=== PATIENT | female | born 2000 | race Caucasian/White ===

== ENCOUNTER → 2020-02-04 | Day surgery (SDC) | payer BC ==
[~2020-02-04] MED LIST: METFORMIN HCL500 M2 PO; MIDAZOLAM HCL 2 MG/2 ML VIAL ONE; PANTOPRAZOLE 40 MG 10ML VIAL ONE; PROPOFOL IV EMULSION 10 MG/ML 50 ML VIAL ONE; SODIUM CHLORIDE 0.9% INJ 10 ML VIAL ONE
--- OUTSIDE RECORDS SUMMARY | 2020-02-04 05:51 | XMS REPORT | Summary of Care ---
Author Author NERY SANTORO M.D. Organization Unknown Address Unknown Phone Unavailable Care Team Providers Care Secy Name Role Phone NERY SANTORO M.D. Unavailable Unavailable KELSEY GARCIA [place], BRANDO DICKENS Unavailable Unavailable ROWAN CRAFT NC, CHUCK Unavailable Unavailable KELSEY Liang, BRANDO Unavailable Unavailable MARYAN GARCIA NC, REX HENDRICKS Unavailable Unavailable NERY SANTORO MD Unavailable Unavailable Unavailable Unavailable Functional Status Name Dates Details Functional status health issues are not documented Status: Name Dates Details Cognitive status health issues are not documented Status: Problems Name Dates Details Suicidal thoughts (V62.84, R45.851) Status: Active Thoracic back pain (724.1, M54.6) Status: Active Seasonal allergic rhinitis (477.9, J30.2) Status: Active PCOS (polycystic ovarian syndrome) (256.4, E28.2) Status: Active Insomnia (780.52, G47.00) Status: Active Weight increase (783.1, R63.5) Status: Active Need for influenza vaccination (V04.81, Z23) Status: Active Anxiety with depression (300.4, F41.8) Status: Active Medications Name Dates Details metFORMIN HCl ER (OSM) 500 MG Oral Tablet Extended Release 24 Hour TAKE 2 TABLETS DAILY. Quantity: 180 NERY SANTORO M.D. Active Allergies and Adverse Reactions Name Dates Details No Known Drug Allergies (Allergy) Status: Active Past Medical History Name Dates Details History of Closed displaced fracture of neck of fifth metacarpal bone of right hand, initial encounter (815.04, S62.336A) Status: Resolved History of Closed displaced fracture of shaft of fourth metacarpal bone of right hand, initial encounter (815.03, S62.324A) Status: Resolved Procedures Procedure Dates Details Procedures not documented Immunization Name Dates Details Gardasil 9 Intramuscular Suspension Prefilled Syringe Not Administered Gardasil 9 Intramuscular Suspension on: Oct-2012 Tdap on: Oct-2013 Fluzone Quadrivalent 0.5 ML Intramuscular Suspension Prefilled Syringe #1 Lot #: [id number] on: 20-Dec-2019 Family History Name Dates Details Family history of malignant neoplasm of prostate (V16.42, Z80.42) Status: Active Name Dates Details FH: breast cancer in first degree relative (V16.3, Z80.3) Status: Active Name Dates Details Family history of Hypothyroidism Status: Active Family history of Rheumatoid Arthritis Status: Active Name Dates Details Family history of Diabetes Mellitus (V18.0) Status: Active Family history of Thyroid Carcinoma Status: Active Family history of Colon Cancer (V16.0) Status: Active Family history of essential hypertension (V17.49, Z82.49) Status: Active Social History Name Dates Details - Status: Name Dates Details Smokes tobacco daily (finding) Vital Signs Date Test Result Details [id number]:00 Physical Findings 10 Status: Comments: PHQ-9 Adult Depression Screening 17-Glr-809832:45 Systolic blood pressure 107 mm[Hg] Status: Comments: Location: LUE; Position: Sitting Diastolic blood pressure 72 mm[Hg] Status: Comments: Location: LUE; Position: Sitting Body height 62 in Status: Physical Findings 19 Status: Comments: 2-20 Stature Percentile Weight 177.4 lb Status: Body mass index (BMI) [Ratio] 32.45 kg/m2 Status: Body surface area Derived from formula 1.82 m2 Status: Physical Findings 94 Status: Comments: 2-20 Weight Percentile Physical Findings 96 Status: Comments: BMI Percentile Body temperature 97.6 f Status: Comments: Method: Temporal Heart Rate 90 /min Status: Respiratory rate 18 /min Status: Physical Findings 0 Status: Comments: Alcohol Screen - How many times in the past yr have you had 5 (for M) or 4 (for F) or 4 (for all > 65yrs) or more drinks in a day? Results Date Description Value Details [id number] [[facility]] CMP W/EGFR GLUCOSE 83 mg/dl (Normal) Range: 65-139 Comments: Non-fasting reference interval UREA NITROGEN (BUN) 16 mg/dl (Normal) Range: 7-20 CREATININE 0.85 mg/dl (Normal) Range: 0.50-1.00 eGFR NON- 99 {ML/MIN/1.7} (Normal) Range: > OR=60 eGFR 115 {ML/MIN/1.7} (Normal) Range: > OR=60 BUN/CREATININE RATIO NOT APPLICABLE {CALC} Range: 6-22 SODIUM 138 mmol/L (Normal) Range: 135-146 POTASSIUM 4.1 mmol/L (Normal) Range: 3.8-5.1 CHLORIDE 105 mmol/L (Normal) Range: 98-110 CARBON DIOXIDE 27 mmol/L (Normal) Range: 20-32 CALCIUM 9.4 mg/dl (Normal) Range: 8.9-10.4 PROTEIN, TOTAL 7.1 g/dl (Normal) Range: 6.3-8.2 ALBUMIN 4.2 g/dl (Normal) Range: 3.6-5.1 GLOBULIN 2.9 {G/DL__CALC} (Normal) Range: 2.0-3.8 ALBUMIN/GLOBULIN RATIO 1.4 {CALC} (Normal) Range: 1.0-2.5 BILIRUBIN, TOTAL 0.2 mg/dl (Normal) Range: 0.2-1.1 ALKALINE PHSPHATASE 94 u/l (Normal) Range: 36-128 AST 19 u/l (Normal) Range: 12-32 ALT 17 u/l (Normal) Range: 5-32 [id number]-[id number] [[facility]] CBC (INCLUDES DIFF/PLT) WHITE BLOOD CELL COUNT 7.9 {Thousand/u} (Normal) Range: 3.8-10.8 RED BLOOD CELL COUNT 3.80 {Million/uL} (Normal) Range: 3.80-5.10 HEMAGLOBIN 12.0 g/dl (Normal) Range: 11.7-15.5 HEMATOCRIT 35.9 % (Normal) Range: 35.0-45.0 MCV 94.5 fL (Normal) Range: 80.0-100.0 MCH 31.6 pg (Normal) Range: 27.0-33.0 MCHC 33.4 g/dl (Normal) Range: 32.0-36.0 RDW 12.5 % (Normal) Range: 11.0-15.0 PLATELET COUNT 300 {Thousand/u} (Normal) Range: 140-400 MPV 10.7 fL (Normal) Range: 7.5-12.5 ABSOLUTE NEUTROPHILS 4385 {cells/uL} (Normal) Range: 7339-8791 ABSOLUTE LYMPHOCYTES 1951 {cells/uL} (Normal) Range: 850-3900 ABSOLUTE MONOCYTES 909 {cells/uL} (Normal) Range: 200-950 ABSOLUTE EOSINOPHILS 616 {cells/uL} (Above high threshold) Range: 15-500 ABSOLUTE BASOPHILS 40 {cells/uL} (Normal) Range: 0-200 NEUTROPHILS 55.5 % (Normal) LYMPHOCYTES 24.7 % (Normal) MONOCYTES 11.5 % (Normal) EOSINOPHILS 7.8 % (Normal) BASOPHILS 0.5 % (Normal) : [[facility]] T3, TOTAL T3, TOTAL 127 ng/dl (Normal) Range: 86-192 : [[facility]] T4, FREE T4, FREE 1.1 ng/dl (Normal) Range: 0.8-1.4 [[facility]] TSH, 3RD GENERATION TSH 1.02 {MIU/L} (Normal) Comments: Reference Range 1-19 Years 0.50-4.30 Ranges First trimester 0.26-2.66 Second trimester 0.55-2.73 Third trimester 0.43-2.91 : [[facility]] HEMOGLOBIN A1c Comments: REPORT COMMENT:FASTING:NO HEMOGLOBIN A1c 5.4 {%_of_total} (Normal) Range: <5.7 Comments: For the purpose of screening for the presence ofdiabetes: <5.7% Consistent with the absence of diabetes5.7-6.4% Consistent with increased risk for diabetes (prediabetes)> or=6.5% Consistent with diabetes This assay result is consistent with a decreased riskof diabetes. Currently, no consensus exists regarding use ofhemoglobin A1c for diagnosis of diabetes in children. According to [place] Diabetes Association (ADA)guidelines, hemoglobin A1c <7.0% represents optimalcontrol in non- diabetic patients. Differentmetrics may apply to specific patient populations. Standards of Medical Care in Diabetes(ADA). Plan of Care Name Dates Details Planned Observations Planned Goals not documented Planned Encounters Appointment; NERY SANTORO M.D. On: 17-Jan-2020 16:00 Interventions Provided Discussion/Summary* Gluocse is well controlled. Normal thyroid function. Normal CBC. No electrolyte abnormalities to suggest adrenal problems. Continue plan to consult with a and p mechanic. Increase frequeny and intensity of exercise. Use the [employer] gabriela to keep a calorie diary. Continue Metformin ER 1000 mg bid. Instructions Name Dates Details Instructions not documented Encounters Appointment; REX STEINBERG M.D. Encounter Diagnosis: Problem not documented On: 19-Mar-2019 13:30 Appointment; CHUCK DONAUHE D.O. Encounter Diagnosis: Problem not documented On: 20-Mar-2019 12:30 Appointment; MARIA L EASLEY M.D. Encounter Diagnosis: Problem not documented On: 22-Mar-2019 10:30 Appointment; REX STEINBERG M.D. Encounter Diagnosis: Problem not documented On: 18-Apr-2019 14:15 Appointment; REX STEINBERG M.D. Encounter Diagnosis: Problem not documented On: 22-Apr-2019 15:00 Appointment; CHUCK DONAHUE D.O. Encounter Diagnosis: Problem not documented On: 01-May-2019 7:30 Appointment; NERY SANTORO M.D. Encounter Diagnosis: Problem not documented On: 23-Aug-2019 16:00 Appointment; NERY SANTORO M.D. Encounter Diagnosis: Problem not documented On: 20-Dec-2019 15:15
--- OUTSIDE RECORDS SUMMARY | 2020-02-04 05:51 | XMS REPORT | Summary of Care ---
Author Author NERY SANOTRO M.D. Organization Unknown Address Unknown Phone Unavailable Care Team Providers Care Education Department Registrar Name Role Phone NERY SANTORO M.D. Unavailable Unavailable KELSEY GARCIA NM, BRANDO DICKENS Unavailable Unavailable ROWAN CRAFT NM, CHUCK Unavailable Unavailable KELSEY Liang, BRANDO Unavailable Unavailable MARYAN GARCIA NM, REX HENDRICKS Unavailable Unavailable NERY SANTORO MD Unavailable Unavailable Unavailable Unavailable Functional Status Name Dates Details Functional status health issues are not documented Status: Name Dates Details Cognitive status health issues are not documented Status: Problems Name Dates Details Suicidal thoughts (V62.84, R45.851) Status: Active Thoracic back pain (724.1, M54.6) Status: Active Seasonal allergic rhinitis (477.9, J30.2) Status: Active Insomnia (780.52, G47.00) Status: Active Weight increase (783.1, R63.5) Status: Active Need for influenza vaccination (V04.81, Z23) Status: Active Anxiety with depression (300.4, F41.8) Status: Active PCOS (polycystic ovarian syndrome) (256.4, E28.2) Status: Active Medications Name Dates Details metFORMIN [...] Intramuscular Suspension Prefilled Syringe #1 Lot #: [id number] on: 20-Dec-2019 Family History Name Dates Details [...] (finding) Vital Signs Date Test Result Details [id number]:00 Physical Findings 10 Status: Comments: PHQ-9 Adult Depression Screening 75-Wqx-551230:45 Systolic blood pressure 107 mm[Hg] Status: Comments: [...] a day? Results Date Description Value Details 28-Bun-796538:29 [[facility]] CMP W/EGFR GLUCOSE 83 mg/dl (Normal) [...] 12-32 ALT 17 u/l (Normal) Range: 5-32 84-Ufh-194701:29 [[facility]] CBC (INCLUDES DIFF/PLT) WHITE BLOOD CELL COUNT [...] 7.5-12.5 ABSOLUTE NEUTROPHILS 4385 {cells/uL} (Normal) Range: 4156-7068 ABSOLUTE LYMPHOCYTES 1951 {cells/uL} (Normal) Range: 850-3900 ABSOLUTE MONOCYTES 909 {cells/uL} (Normal) Range: 200-950 ABSOLUTE EOSINOPHILS 616 {cells/uL} (Above high threshold) Range: 15-500 ABSOLUTE BASOPHILS 40 {cells/uL} (Normal) Range: 0-200 NEUTROPHILS 55.5 % (Normal) LYMPHOCYTES 24.7 % (Normal) MONOCYTES 11.5 % (Normal) EOSINOPHILS 7.8 % (Normal) BASOPHILS 0.5 % (Normal) : [[facility]] T3, TOTAL T3, TOTAL 127 ng/dl (Normal) Range: 86-192 : [[facility]] T4, FREE T4, FREE 1.1 ng/dl (Normal) Range: 0.8-1.4 [[facility]] TSH, 3RD GENERATION TSH 1.02 {MIU/L} (Normal) Comments: Reference Range 1-19 Years 0.50-4.30 Ranges First trimester 0.26-2.66 Second trimester 0.55-2.73 Third trimester 0.43-2.91 : [[facility]] HEMOGLOBIN A1c Comments: REPORT COMMENT:FASTING:NO HEMOGLOBIN A1c [...] diagnosis of diabetes in children. According to [place] Diabetes [employer] (ADA)guidelines, hemoglobin A1c <7.0% represents optimalcontrol in non- diabetic patients. Differentmetrics may apply to specific patient populations. Standards of Medical Care in Diabetes(ADA). Plan of Care Name Dates Details Planned Observations Planned Goals not documented Planned Encounters Dietitian Referral Appointment; NERY SANTORO M.D. On: 17-Jan-2020 16:00 Interventions Provided Medication Changes* metFORMIN HCl ER (OSM) 500 MG Oral Tablet Extended Release 24 Hour - Renew Medications/Immunizations Administered* Fluzone Quadrivalent 0.5 ML Intramuscular Suspension Prefilled Syringe; Done: 20 Dec 2019 Plan* Anxiety with depression (300.4) (F41.8) * Obtain thyroid panel, * A1C, CMP, CBC. * DIscussed natural history of PCOS, insulin resistance. * Explained the role of metformin in reducing insulin resistance, insulin levels, and possibly helping reduce/reverse some weight gain. * Increase Metformin ER to 1000 mg bid. * Referral to DM educator/legal billing coordinator. * Discussed changing lifestyle to prevent chronic disease from obesity. * Discussed nutritional resources available in the community. Encouraged ongoing participation in the [employer] Class, 3rd Monday of each month. * Reinforced elimination of non-nutritious calories. * Discussed goal of 30 minutes of cardiovascular exercise 5x/week. * Schedule a visit to follow up in 1 month. Instructions Name Dates Details Instructions not documented Encounters Appointment; REX STEINBERG M.D. Encounter Diagnosis: Problem not documented On: 19-Mar-2019 13:30 Appointment; CHUCK DONAHUE D.O. Encounter Diagnosis: Problem [...]
--- OUTSIDE RECORDS SUMMARY | 2020-02-04 05:51 | XMS REPORT | Summary of Care ---
Author Author Jayne Blanchard M.A. Unknown Address [facility] Phone Unavailable Care Team Providers Care Binder Selector Name Role Phone MAUDE Liang, NERY Unavailable Unavailable KELSEY GARCIA ID, BRANDO DICKENS Unavailable Unavailable ROWAN CRAFT [place], CHUCK Unavailable Unavailable KELSEY Liang, BRANDO Unavailable Unavailable MARYAN GARCIA ID, REX HENDRICKS Unavailable Unavailable NERY SANTORO MD [...] Intramuscular Suspension Prefilled Syringe #1 Lot #: [id number] on: 20-Dec-2019 Family History Name Dates Details [...] (finding) Vital Signs Date Test Result Details [id number]:00 Physical Findings 10 Status: Comments: PHQ-9 Adult Depression Screening 32-Rkz-134007:45 Systolic blood pressure 107 mm[Hg] Status: Comments: [...] a day? Results Date Description Value Details :29 [[facility]] CMP W/EGFR GLUCOSE 83 mg/dl (Normal) [...] 12-32 ALT 17 u/l (Normal) Range: 5-32 [id number]:29 [[facility]] CBC (INCLUDES DIFF/PLT) WHITE BLOOD CELL [...] 7.5-12.5 ABSOLUTE NEUTROPHILS 4385 {cells/uL} (Normal) Range: 7649-7855 ABSOLUTE LYMPHOCYTES 1951 {cells/uL} (Normal) Range: 850-3900 ABSOLUTE MONOCYTES 909 {cells/uL} (Normal) Range: 200-950 ABSOLUTE EOSINOPHILS 616 {cells/uL} (Above high threshold) Range: 15-500 ABSOLUTE BASOPHILS 40 {cells/uL} (Normal) Range: 0-200 NEUTROPHILS 55.5 % (Normal) LYMPHOCYTES 24.7 % (Normal) MONOCYTES 11.5 % (Normal) EOSINOPHILS 7.8 % (Normal) BASOPHILS 0.5 % (Normal) : [[facility]] T3, TOTAL T3, TOTAL 127 ng/dl (Normal) Range: 86-192 : [[facility]] T4, FREE T4, FREE 1.1 ng/dl (Normal) Range: 0.8-1.4 [[facility]] TSH, 3RD GENERATION TSH 1.02 {MIU/L} (Normal) Comments: Reference Range 1-19 Years 0.50-4.30 Ranges First trimester 0.26-2.66 Second trimester 0.55-2.73 Third trimester 0.43-2.91 : [[facility]] HEMOGLOBIN A1c Comments: REPORT COMMENT:FASTING:NO HEMOGLOBIN [...] diagnosis of diabetes in children. According to [place] Diabetes Association (ADA)guidelines, hemoglobin A1c <7.0% represents optimalcontrol in non- diabetic patients. Differentmetrics may apply to specific patient populations. Standards of Medical Care in Diabetes(ADA). Plan of Care Name Dates Details Planned Observations Planned Goals not documented Planned Encounters Appointment; NERY SANTORO M.D. On: 17-Jan-2020 16:00 Interventions Provided Follow-ups/Referrals* Dietitian Referral; To Be Done: 20 Dec 2019 Instructions Name Dates Details Instructions not documented [...]
--- OUTSIDE RECORDS SUMMARY | 2020-02-04 05:51 | XMS REPORT | Summary of Care ---
Author Author MAUDE Liang, NERY Workman Unknown Address Unknown Phone Unavailable Care Team Providers Care Job Change Crew Member Name Role Phone MAUDE Liang, NERY Unavailable Unavailable KELSEY GARCIA [place], BRANDO DICKENS Unavailable Unavailable ROWAN CRAFT [place], CHUCK Unavailable Unavailable KELSEY Liang, BRANDO Unavailable Unavailable MARYAN GARCIA [place], REX HENDRICKS Unavailable Unavailable MAUDE GARCIA, NERY Lujan Unavailable Unavailable Unavailable Unavailable Functional Status Name Dates Details Functional status health issues are not documented Status: Name Dates Details Cognitive status health issues are not documented Status: Problems Name Dates Details Abdominal pain (789.00, R10.9) Status: Active Anxiety (300.00, F41.9) Status: Active Suicidal thoughts (V62.84, R45.851) Status: Active Thoracic back pain (724.1, M54.6) Status: Active Seasonal allergic rhinitis (477.9, J30.2) Status: Active Fatigue (780.79, R53.83) Status: Active Closed displaced fracture of shaft of fourth metacarpal bone of right hand, initial encounter (815.03, S62.324A) Status: Active Closed displaced fracture of neck of fifth metacarpal bone of right hand, initial encounter (815.04, S62.336A) Status: Active Anxiety with depression (300.4, F41.8) Status: Active Insomnia (780.52, G47.00) Status: Active Viral URI with cough (465.9, J06.9) Status: Active Medications Name Dates Details Medications not documented Allergies and Adverse Reactions Name Dates Details No Known Drug Allergies (Allergy) Status: Active Procedures Procedure Dates Details Procedures not documented Immunization Name Dates Details Gardasil 9 Intramuscular Suspension Prefilled Syringe Not Administered Gardasil 9 Intramuscular Suspension on: Oct-2012 Tdap on: Oct-2013 Family History Name Dates Details Family history [...] Dates Details - Status: Name Dates Details Current every day smoker Vital Signs Date Test Result Details [id number] BP Systolic 109 mm[Hg] Status: Comments: Location: LUE; Position: Sitting BP Diastolic 73 mm[Hg] Status: Comments: Location: LUE; Position: Sitting Height 62 in Status: Physical Findings 19 Status: Comments: 2-20 Stature Percentile Weight 143.3125 lb Status: Body Mass Index Calculated 26.21 kg/m2 Status: Body Surface Area Calculated 1.66 m2 Status: Physical Findings 74 Status: Comments: 2-20 Weight Percentile Physical Findings 85 Status: Comments: BMI Percentile Temperature 97.9 f Status: Comments: Method: Temporal Heart Rate 96 /min Status: Respiration Rate 16 /min Status: Physical Findings 0 Status: Comments: Alcohol Screen - How many times in the past yr have you had 5 (for M) or 4 (for F) or 4 (for all > 65yrs) or more drinks in a day? Results Date Description Value Details Results not documented Plan of Care Name Dates Details Planned Observations Planned Goals not documented Interventions Provided Labs/Procedures/Imaging* Tobacco Use Screening; Done: 23 Aug 2019 Instructions Name Dates Details Instructions not [...]
--- OUTSIDE RECORDS SUMMARY | 2020-02-04 05:51 | XMS REPORT | Summary of Care ---
Author Author NERY SANTORO M.D. Unknown Address Unknown Phone Unavailable Care Team Providers Care Lens Block Gauger Name Role Phone NERY SANTORO M.D. Unavailable Unavailable KELSEY GARCIA [place], BRANDO DICKENS Unavailable Unavailable ROWAN CRAFT [place], CHUCK Unavailable Unavailable KELSEY Liang, BRANDO Unavailable Unavailable MARYAN GARCIA ND, REX HENDRICKS Unavailable Unavailable NERY SANTORO MD Unavailable Unavailable Unavailable Unavailable Functional Status Name Dates Details Functional status health issues are not documented Status: Name Dates Details Cognitive status health issues are not documented Status: Problems Name Dates Details Anxiety (300.00, F41.9) Status: Active Suicidal thoughts (V62.84, R45.851) Status: Active Thoracic back pain (724.1, M54.6) Status: Active Seasonal allergic rhinitis (477.9, J30.2) Status: Active Closed displaced fracture of shaft of fourth metacarpal bone of right hand, initial encounter (815.03, S62.324A) Status: Active Closed displaced fracture of neck of fifth metacarpal bone of right hand, initial encounter (815.04, S62.336A) Status: Active PCOS (polycystic ovarian syndrome) (256.4, E28.2) Status: Active Anxiety with depression (300.4, F41.8) Status: Active Insomnia (780.52, G47.00) Status: Active Weight increase (783.1, R63.5) Status: Active Medications Name Dates Details metFORMIN HCl ER (OSM) 500 MG Oral Tablet Extended Release 24 Hour TAKE 2 TABLETS DAILY. Quantity: 180 NERY SANTORO M.D. Active Allergies and Adverse Reactions Name Dates Details No Known Drug Allergies (Allergy) Status: Active Procedures Procedure Dates Details [[facility]] HEMOGLOBIN A1c Date: 20-Dec-2019 [[facility]] CMP W/EGFR Date: 20-Dec-2019 [QL] TSH, 3RD GENERATION Date: 20-Dec-2019 [QL] CBC (INCLUDES DIFF/PLT) Date: 20-Dec-2019 [[facility]] T4, FREE Date: 20-Dec-2019 [[facility]] T3, TOTAL Date: 20-Dec-2019 Immunization Name Dates Details Gardasil 9 Intramuscular [...] (finding) Vital Signs Date Test Result Details [id number]:00 Physical Findings 10 Status: Comments: PHQ-9 Adult Depression Screening 80-Ygp-180476:45 Systolic blood pressure 107 mm[Hg] Status: Comments: [...] Tablet Extended Release 24 Hour - Renew Labs/Procedures/Imaging* [[facility]] CBC (INCLUDES DIFF/PLT); To Be Done: 20 Dec 2019 * [[facility]] CMP W/EGFR; To Be Done: 20 Dec 2019 * [[facility]] HEMOGLOBIN A1c; To Be Done: 20 Dec 2019 * [[facility]] T3, TOTAL; To Be Done: 20 Dec 2019 * [[facility]] T4, FREE; To Be Done: 20 Dec 2019 * [[facility]] TSH, 3RD GENERATION; To Be Done: 20 Dec 2019 Plan* Obtain thyroid panel, * A1C, CMP, CBC. * DIscussed natural history of PCOS. * Discussed changing lifestyle to prevent chronic disease from obesity. * Discussed nutritional resources available in the community. Encouraged ongoing participation in the [employer] Class, 3rd Monday of each month. * Reinforced elimination of non-nutritious calories. * Discussed goal of 30 minutes of cardiovascular exercise 5x/week. * Current goal is to lose 5% of body weight in the next 12 weeks. * Increase Metformin ER to 1000 mg bid. * Referral to DM educator/senior games technician. * Schedule a visit to follow up [...]
--- OUTSIDE RECORDS SUMMARY | 2020-02-04 05:51 | XMS REPORT | Summary of Care ---
Author Author Belgica Acosta R.N. Unknown Address Unknown Phone Unavailable Care Team Providers Care Roll Finisher Name Role Phone MAUDE Liang, NERY Unavailable Unavailable KELSEY GARCIA [place], BRANDO DICKENS Unavailable Unavailable ROWAN CRAFT [place], CHUCK Unavailable Unavailable KELSEY Liang, BRANDO Unavailable Unavailable MARYAN GARCIA [place], REX HENDRICKS Unavailable Unavailable MAUDE GARCIA, NERY [...] for influenza vaccination (V04.81, Z23) Status: Active Medications Name Dates Details metFORMIN HCl ER (OSM) 500 MG Oral Tablet Extended Release 24 Hour TAKE 2 TABLETS DAILY. Quantity: 180 NERY SANTORO M.D. Active Allergies and Adverse Reactions Name Dates Details No Known Drug Allergies (Allergy) Status: Active Procedures Procedure Dates Details [QL] HEMOGLOBIN A1c Date: 20-Dec-2019 [[facility]] CMP W/EGFR Date: 20-Dec-2019 [[facility]] TSH, 3RD GENERATION Date: 20-Dec-2019 [QL] CBC (INCLUDES DIFF/PLT) Date: 20-Dec-2019 [QL] T4, FREE Date: 20-Dec-2019 [[facility]] T3, TOTAL Date: 20-Dec-2019 Immunization Name Dates Details Gardasil 9 Intramuscular Suspension Prefilled Syringe Not Administered Gardasil 9 Intramuscular Suspension on: Oct-2012 Tdap on: Oct-2013 Fluzone Quadrivalent 0.5 ML Intramuscular Suspension Prefilled Syringe #1 Lot #: [id number] on: 20-Dec-2019 Family History Name Dates Details [...] (finding) Vital Signs Date Test Result Details [id number] Physical Findings 10 Status: Comments: PHQ-9 Adult Depression Screening 67-[id number]:45 Systolic blood pressure 107 mm[Hg] Status: Comments: [...] GENERATION; To Be Done: 20 Dec 2019 Medications/Immunizations Administered* Fluzone Quadrivalent 0.5 ML Intramuscular Suspension Prefilled Syringe; Done: 20 Dec 2019 Plan* Obtain thyroid [...] 1000 mg bid. * Referral to DM educator/remedial project manager. * Schedule a visit to follow up [...]
--- OUTSIDE RECORDS SUMMARY | 2020-02-04 05:51 | XMS REPORT | Summary of Care ---
Author Author Max Jones LVN Organization Unknown Address Unknown Phone Unavailable Care Team Providers Care Public Service Director Name Role Phone MAUDE Liang, NERY Unavailable Unavailable Max Jones LVN Unavailable Unavailable KELSEY GARCIA [place], BRANDO DICKENS [...] Intramuscular Suspension Prefilled Syringe #1 Lot #: [id number] on: 20-Dec-2019 Family History Name Dates Details [...] (finding) Vital Signs Date Test Result Details [id number]-Ojp-[id number]:00 Physical Findings 10 Status: Comments: PHQ-9 Adult Depression Screening 59-Aog-841018:45 Systolic blood pressure 107 mm[Hg] Status: Comments: [...] a day? Results Date Description Value Details 98-Uwn-138201:29 [[facility]] CMP W/EGFR GLUCOSE 83 mg/dl (Normal) [...] 12-32 ALT 17 u/l (Normal) Range: 5-32 14-Wld-016522:29 [[facility]] CBC (INCLUDES DIFF/PLT) WHITE BLOOD CELL COUNT [...] 7.5-12.5 ABSOLUTE NEUTROPHILS 4385 {cells/uL} (Normal) Range: 5640-0007 ABSOLUTE LYMPHOCYTES 1951 {cells/uL} (Normal) Range: 850-3900 ABSOLUTE MONOCYTES 909 {cells/uL} (Normal) Range: 200-950 ABSOLUTE EOSINOPHILS 616 {cells/uL} (Above high threshold) Range: 15-500 ABSOLUTE BASOPHILS 40 {cells/uL} (Normal) Range: 0-200 NEUTROPHILS 55.5 % (Normal) LYMPHOCYTES 24.7 % (Normal) MONOCYTES 11.5 % (Normal) EOSINOPHILS 7.8 % (Normal) BASOPHILS 0.5 % (Normal) : [[facility]] T3, TOTAL T3, TOTAL 127 ng/dl (Normal) Range: 86-192 : [[facility]] T4, FREE T4, FREE 1.1 ng/dl (Normal) Range: 0.8-1.4 : [[facility]] TSH, 3RD GENERATION TSH 1.02 {MIU/L} (Normal) Comments: Reference Range 1-19 Years 0.50-4.30 Ranges First trimester 0.26-2.66 Second trimester 0.55-2.73 Third trimester 0.43-2.91 :29 [[facility]] HEMOGLOBIN A1c Comments: REPORT COMMENT:FASTING:NO HEMOGLOBIN A1c [...] diagnosis of diabetes in children. According to [place] Diabetes Association (ADA)guidelines, hemoglobin A1c <7.0% represents optimalcontrol in non- diabetic patients. Differentmetrics may apply to specific patient populations. Standards of Medical Care in Diabetes(ADA). Plan of Care Name Dates Details Planned Observations Planned Goals not documented Planned Encounters Appointment; NERY SANTORO M.D. On: 17-Jan-2020 16:00 Instructions Name Dates Details Instructions not documented [...]
--- OUTSIDE RECORDS SUMMARY | 2020-02-04 05:51 | XMS REPORT ---
Author Author [facility] Address Unknown Phone Unavailable Care Team Providers Care Undertaker Assistant Name Role Phone DR BUTCH MCFADDEN Unavailable Unavailable Problems This patient has no known problems. Allergies, Adverse Reactions, Alerts This patient has no known allergies or adverse reactions. Medications This patient has no known medications. Encounters Start Date/Time End Date/Time Encounter Type Admission Type Attending [facility] Facility Care Department Encounter ID 2019-04-28 16:01:00 2019-04-28 16:01:00 Emergency E [facility]BL [facility]BL [id number] 2019-04-26 12:58:00 2019-04-26 15:52:00 Emergency E BUTCH MCFADDEN [facility] [id number] Results Test Description Test Time Test Comments Text Results Atomic Results Result Comments DRUGS OF ABUSE *WW* 2019-04-26 13:55:00 DRUG SCRN (test code=HDOA) URINE DRUG SCREEN This is an unconfirmed screening result and should not be used for non-medical purposes CANNABINOD (test code=88C) Negative NEGATIVE AMPHETAMINE (test code=84A) Negative NEGATIVE BENZODIAZP (test code=86A) Negative NEGATIVE BARBITURAT (test code=85A) Negative NEGATIVE OPIATES (test code=92B) Negative NEGATIVE COCAINE (test code=87A) Negative NEGATIVE PHENCYCLID (test code=66A) Negative NEGATIVE METHADONE (test code=64A) Negative NEGATIVE DOAH (test code=DOAH.) URINE DRUG SCREEN Cut-off values are as follows: Cannabinoids 50 ng/mL Cocaine 300 ng/mL Amphetamines 1000 ng/mL Phencyclidine 25 ng/mL Benzodiazepines 200 ng.mL Methadone 300 ng/mL Barbiturates 200 ng/mL Opiates 2000 ng/mL URINALYSIS 2019-04-26 13:38:00* Test Item Value Reference Range Comments COLOR (test code=COLU) YELLOW YELLOW CLARITY (test code=CLA) CLEAR CLEAR GLUCOSE UR (test code=UA GLUCOSE) NEGATIVE NEGATIVE BILI UR (test code=BILE) NEGATIVE NEGATIVE KETONES UR (test code=IRVING) NEGATIVE NEGATIVE SP GRAVITY (test code=SPGR) <=1.005 1.005-1.030 PH UR (test code=PH) 7.0 4.5-8.0 PROTEIN UR (test code=PU) NEGATIVE NEGATIVE UROBIL UR (test code=UROQ) 0.2 EU/dL 0.2-1.0 NITRITE UR (test code=NITRITE) NEGATIVE NEGATIVE BLOOD UR (test code=UA BLOOD) NEGATIVE NEGATIVE LEUK ES UR (test code=LEUK) NEGATIVE NEGATIVE AUAM (test code=WAUAM) NO NO URINE MONOCLONAL 2019-04-26 13:34:00* Test Item Value Reference Range Comments PREG UR (test code=PGU) NEGATIVE NEGATIVE
--- OUTSIDE RECORDS SUMMARY | 2020-02-04 05:52 | XMS REPORT | Summary of Care ---
Author Author CRISTOBAL MCCLURE, [facility] Organization Unknown Address Unknown Phone Unavailable Care Team Providers Care Investigation Specialist Name Role Phone MAUDE Liang, NERY Unavailable Unavailable CRISTOBAL MCCLURE, BRYCE Unavailable Unavailable KELSEY GARCIA [place], BRANDO DICKENS Unavailable Unavailable ROWAN CRAFT [place], CHUCK Unavailable Unavailable KELSEY Liang, BRANDO Unavailable Unavailable MARYAN GARCIA [place], REX HENDRICKS Unavailable Unavailable MAUDE GARCIA, NERY Lujan Unavailable Unavailable Unavailable Unavailable Functional Status Name Dates Details Functional status health issues are not documented Status: Name Dates Details Cognitive status health issues are not documented Status: Problems Name Dates Details Thoracic back pain (724.1, M54.6) Status: Active Insomnia (780.52, G47.00) Status: Active Seasonal allergic rhinitis (477.9, J30.2) Status: Active Migraine without aura and without status migrainosus, not intractable (346.10, G43.009) Status: Active Anxiety with depression (300.4, F41.8) Status: Active PCOS (polycystic ovarian syndrome) (256.4, E28.2) Status: Active BMI 33.0-33.9,adult (V85.33, Z68.33) Status: Active Medications Name Dates Details metFORMIN [...] hand, initial encounter (815.03, S62.324A) Status: Resolved History of influenza vaccination (V49.89, Z92.29) Status: Resolved History of suicidal ideation (V11.8, Z86.59) Status: Resolved History of weight gain (V15.89, Z87.898) Status: Resolved Procedures Procedure Dates Details Procedures not documented Immunization Name Dates Details Gardasil 9 Intramuscular Suspension Prefilled Syringe Not Administered Gardasil 9 Intramuscular Suspension on: Oct-2012 Tdap on: Oct-2013 Fluzone Quadrivalent 0.5 ML Intramuscular Suspension Prefilled Syringe #1 Lot #: [id number] on: 20-Dec-2019 Family History Name Dates Details [...] (finding) Vital Signs Date Test Result Details 8-Ggb-[id number]:39 Weight 181.6 lb Status: Physical Findings 95 Status: Comments: 2-20 Weight Percentile Body height 62 in Status: Body mass index (BMI) [Ratio] 33.22 kg/m2 Status: Body surface area Derived from formula 1.83 m2 Status: Physical Findings 19 Status: Comments: 2-20 Stature Percentile Physical Findings 96 Status: Comments: BMI Percentile Results Date Description Value Details Results not documented Plan of Care Name Dates Details Planned Observations Planned Goals not documented Planned Encounters Appointment; NERY SANTORO M.D. On: 20-Jul-2020 15:30 Interventions Provided Plan* The following items regarding the patient's goals were discussed and reviewed in detail on 01/27/2020. * Blood Sugar Monitoring * Nutrition * * AVOID all sugary beverages to include juice, regular soda, punch, sugared tea and sports drinks. * Exercise * * Exercise 3-5 times each week for 30-60 minutes. * Miscellaneous This is what Kierra wrote down: * 1. No calories in beverages * 2. 30 minutes of exercise daily - plans on swimming * 3. try frozen meals * 4. Keep food log. Discussion/Summary* Patient's understanding of counseling material was interacted well asked questions, which were answered was engaged throughout the visit * Learning barriers include: None. Instructions Name Dates Details Instructions not documented [...] Diagnosis: Problem not documented On: 20-Dec-2019 15:15 Appointment; NERY SANTORO M.D. Encounter Diagnosis: Problem not documented On: 15-Jan-2020 8:45 Appointment; BRYCE JAIN RD Encounter Diagnosis: Problem not documented On: 27-Jan-2020 15:00
--- OUTSIDE RECORDS SUMMARY | 2020-02-04 05:52 | XMS REPORT | Summary of Care ---
Author Author Bernice Rangel M.A. Organization Unknown Address Unknown Phone Unavailable Care Team Providers Care Table Setter Name Role Phone MAUDE Liang, NERY Unavailable Unavailable Bernice Rangel M.A. Unavailable Unavailable KELSEY GARCIA [place], BRANDO DICKENS Unavailable Unavailable ROWAN CRAFT [place], CHUCK Unavailable Unavailable KELSEY Liang, BRANDO Unavailable Unavailable MARYAN GARCIA [place], REX HENDRICKS Unavailable Unavailable MAUDE GARCIA, NERY [...] Intramuscular Suspension Prefilled Syringe #1 Lot #: [id number] on: 20-Dec-2019 Family History Name Dates Details [...] (finding) Vital Signs Date Test Result Details 55-Gty-583919:00 Physical Findings 10 Status: Comments: PHQ-9 Adult Depression Screening 49-Bwa-998661:45 Systolic blood pressure 107 mm[Hg] Status: Comments: [...] 12-32 ALT 17 u/l (Normal) Range: 5-32 57-Kpj-514300:29 [[facility]] CBC (INCLUDES DIFF/PLT) WHITE BLOOD CELL COUNT [...] 7.5-12.5 ABSOLUTE NEUTROPHILS 4385 {cells/uL} (Normal) Range: 5748-3807 ABSOLUTE LYMPHOCYTES 1951 {cells/uL} (Normal) Range: 850-3900 ABSOLUTE MONOCYTES 909 {cells/uL} (Normal) Range: 200-950 ABSOLUTE EOSINOPHILS 616 {cells/uL} (Above high threshold) Range: 15-500 ABSOLUTE BASOPHILS 40 {cells/uL} (Normal) Range: 0-200 NEUTROPHILS 55.5 % (Normal) LYMPHOCYTES 24.7 % (Normal) MONOCYTES 11.5 % (Normal) EOSINOPHILS 7.8 % (Normal) BASOPHILS 0.5 % (Normal) :29 [[facility]] T3, TOTAL T3, TOTAL 127 ng/dl (Normal) Range: 86-192 : [[facility]] T4, FREE T4, FREE 1.1 ng/dl (Normal) Range: 0.8-1.4 : [[facility]] TSH, 3RD GENERATION TSH 1.02 {MIU/L} (Normal) Comments: Reference Range 1-19 Years 0.50-4.30 Ranges First trimester 0.26-2.66 Second trimester 0.55-2.73 Third trimester 0.43-2.91 :29 [[facility]] HEMOGLOBIN A1c Comments: REPORT COMMENT:FASTING:NO HEMOGLOBIN A1c [...] diagnosis of diabetes in children. According to [place] Diabetes Association (ADA)guidelines, hemoglobin A1c <7.0% represents [...]
--- OUTSIDE RECORDS SUMMARY | 2020-02-04 05:52 | XMS REPORT | Summary of Care ---
Author Author NakulEstephania Organization Unknown Address Unknown Phone Unavailable Care Team Providers Care Yard Hostler Name Role Phone Estephania Mota Unavailable Unavailable MAUDE Liang, NERY Unavailable Unavailable KELSEY GARCIA [place], BRANDO DICKENS Unavailable Unavailable ROWAN CRAFT [place], CHUCK Unavailable Unavailable KELSEY Liang, BRANDO Unavailable Unavailable MARYAN GARCIA [place], REX HENDRICKS Unavailable Unavailable MAUDE GARCIA, NERY [...] Intramuscular Suspension Prefilled Syringe #1 Lot #: [id number] on: 20-Dec-2019 Family History Name Dates Details [...] (finding) Vital Signs Date Test Result Details 90-Apx-566046:00 Physical Findings 10 Status: Comments: PHQ-9 Adult Depression Screening 75-Fht-392761:45 Systolic blood pressure 107 mm[Hg] Status: Comments: [...] a day? Results Date Description Value Details 25-Poo-234949:29 [[facility]] CMP W/EGFR GLUCOSE 83 mg/dl (Normal) [...] 12-32 ALT 17 u/l (Normal) Range: 5-32 29-Gaf-402000:29 [facility] CBC (INCLUDES DIFF/PLT) WHITE BLOOD CELL [...] 7.5-12.5 ABSOLUTE NEUTROPHILS 4385 {cells/uL} (Normal) Range: 4443-9354 ABSOLUTE LYMPHOCYTES 1951 {cells/uL} (Normal) Range: 850-3900 ABSOLUTE MONOCYTES 909 {cells/uL} (Normal) Range: 200-950 ABSOLUTE EOSINOPHILS 616 {cells/uL} (Above high threshold) Range: 15-500 ABSOLUTE BASOPHILS 40 {cells/uL} (Normal) Range: 0-200 NEUTROPHILS 55.5 % (Normal) LYMPHOCYTES 24.7 % (Normal) MONOCYTES 11.5 % (Normal) EOSINOPHILS 7.8 % (Normal) BASOPHILS 0.5 % (Normal) : [[facility]] T3, TOTAL T3, TOTAL 127 ng/dl (Normal) Range: 86-192 : [[facility]] T4, FREE T4, FREE 1.1 ng/dl (Normal) Range: 0.8-1.4 [[facility]] TSH, 3RD GENERATION TSH 1.02 {MIU/L} (Normal) Comments: Reference Range 1-19 Years 0.50-4.30 Ranges First trimester 0.26-2.66 Second trimester 0.55-2.73 Third trimester 0.43-2.91 : [facility] HEMOGLOBIN A1c Comments: REPORT COMMENT:FASTING:NO HEMOGLOBIN [...] diabetes in children. According to [place] Diabetes Association (ADA)guidelines, hemoglobin A1c <7.0% represents [...]
--- OUTSIDE RECORDS SUMMARY | 2020-02-04 05:52 | XMS REPORT | Summary of Care ---
Author Author NakulEstephania Organization Unknown Address Unknown Phone Unavailable Care Team Providers Care Flute Grinder Name Role Phone Estephania Mota Unavailable Unavailable MAUDE Liang, NERY Unavailable Unavailable KELSEY GARCIA [place], BRANDO DICKENS Unavailable Unavailable ROWAN CRAFT [place], CHUCK Unavailable Unavailable KELSEY Liang, BRANDO Unavailable Unavailable MARYAN GARCIA [place], REX HENDRICKS Unavailable Unavailable MAUDE GARCIA, NERY [...] Intramuscular Suspension Prefilled Syringe #1 Lot #: [id number] on: 20-Dec-2019 Family History Name Dates Details [...] (finding) Vital Signs Date Test Result Details 35-Hxt-308163:00 Physical Findings 10 Status: Comments: PHQ-9 Adult Depression Screening 95-Uss-339206:45 Systolic blood pressure 107 mm[Hg] Status: Comments: [...] a day? Results Date Description Value Details 19-Nap-489520:29 [[facility]] CMP W/EGFR GLUCOSE 83 mg/dl (Normal) [...] 12-32 ALT 17 u/l (Normal) Range: 5-32 21-Jhn-903652:29 [[facility]] CBC (INCLUDES DIFF/PLT) WHITE BLOOD CELL COUNT [...] 7.5-12.5 ABSOLUTE NEUTROPHILS 4385 {cells/uL} (Normal) Range: 6441-2503 ABSOLUTE LYMPHOCYTES 1951 {cells/uL} (Normal) Range: 850-3900 ABSOLUTE MONOCYTES 909 {cells/uL} (Normal) Range: 200-950 ABSOLUTE EOSINOPHILS 616 {cells/uL} (Above high threshold) Range: 15-500 ABSOLUTE BASOPHILS 40 {cells/uL} (Normal) Range: 0-200 NEUTROPHILS 55.5 % (Normal) LYMPHOCYTES 24.7 % (Normal) MONOCYTES 11.5 % (Normal) EOSINOPHILS 7.8 % (Normal) BASOPHILS 0.5 % (Normal) : [[facility]] T3, TOTAL T3, TOTAL 127 ng/dl (Normal) Range: 86-192 : [[facility]] T4, FREE T4, FREE 1.1 ng/dl (Normal) Range: 0.8-1.4 [[facility]] TSH, 3RD GENERATION TSH 1.02 {MIU/L} (Normal) Comments: Reference Range 1-19 Years 0.50-4.30 Ranges First trimester 0.26-2.66 Second trimester 0.55-2.73 Third trimester 0.43-2.91 : [[facility]] HEMOGLOBIN A1c Comments: REPORT COMMENT:FASTING:NO HEMOGLOBIN A1c [...] diagnosis of diabetes in children. According to [place] Diabetes Association (ADA)guidelines, hemoglobin A1c <7.0% represents optimalcontrol in non- diabetic patients. Differentmetrics may apply to specific patient populations. Standards of Medical Care in Diabetes(ADA). Plan of Care Name Dates Details Planned Observations Planned Goals not documented Planned Encounters Dietitian Referral Appointment; NERY SANTORO M.D. On: 17-Jan-2020 16:00 Appointment; BRYCE JAIN RD On: 27-Jan-2020 15:00 Instructions Name Dates Details Instructions not documented [...]
--- OUTSIDE RECORDS SUMMARY | 2020-02-04 05:52 | XMS REPORT | Summary of Care ---
Author Author CRISTOBAL MCCLURE, BRYCE Organization Unknown Address Unknown Phone Unavailable Care Team Providers Care Fiscal Services Manager Name Role Phone MAUDE Liang, NERY Unavailable Unavailable CRISTOBAL MCCLURE, BRYCE Unavailable Unavailable KELSEY GARCIA [place], BRANDO DICKENS Unavailable Unavailable ROWAN CRAFT [place], CHUCK Unavailable Unavailable KELSEY Liang, BRANDO Unavailable Unavailable MARYAN GARCIA MA, REX HENDRICKS Unavailable Unavailable MAUDE GARCIA, NERY [...] Hour TAKE 2 TABLETS DAILY. Quantity: 180 MAUDE Liang, NERY Active Allergies and Adverse Reactions Name Dates [...] Intramuscular Suspension Prefilled Syringe #1 Lot #: [id number] on: 20-Dec-2019 Family History Name Dates Details [...] (finding) Vital Signs Date Test Result Details No Known Vitals to report Results Date Description Value Details Results not documented Plan of Care Name Dates Details Planned Observations Planned Goals not documented Planned Encounters Appointment; NERY SANTORO M.D. On: 20-Jul-2020 15:30 Instructions Name Dates Details Instructions not documented [...] Problem not documented On: 22-Apr-2019 15:00 Appointment; CHCUK DONAHUE D.O. Encounter Diagnosis: Problem not documented [...]
--- OUTSIDE RECORDS SUMMARY | 2020-02-04 05:52 | XMS REPORT | Summary of Care ---
Author Author CRISTOBAL MCCLURE, [facility] Organization Unknown Address Unknown Phone Unavailable Care Team Providers Care Business Risk Analyst Name Role Phone MAUDE Liang, NERY Unavailable Unavailable CRISTOBAL MCCLURE, BRYCE Unavailable Unavailable KELSEY GARCIA [place], BRANDO DICKENS Unavailable Unavailable ROW[place] CRAFT [place], CHUCK Unavailable Unavailable KELSEY Liang, BRANDO Unavailable Unavailable MARYAN GARCIA [place], REX HENDRICKS Unavailable Unavailable MAUDE GARCIA, NERY [...] Intramuscular Suspension Prefilled Syringe #1 Lot #: [id number] on: 20-Dec-2019 Family History Name Dates Details [...] (finding) Vital Signs Date Test Result Details [id number]:39 Weight 181.6 lb Status: Physical Findings 95 [...] SANTORO M.D. On: 20-Jul-2020 15:30 Interventions Provided Follow-ups/Referrals* Dietitian Referral; Done: 28 Jan 2020 Plan* The following items regarding the patient's [...]
--- OUTSIDE RECORDS SUMMARY | 2020-02-04 05:52 | XMS REPORT | Summary of Care ---
Author Author NERY SANTORO M.D. Organization Unknown Address Unknown Phone Unavailable Care Team Providers Care Director Of Clinical Education Name Role Phone NERY SANTORO M.D. Unavailable Unavailable KELSEY GARCIA [place], BRANDO DICKENS Unavailable Unavailable ROWAN CRAFT [place], CHUCK Unavailable Unavailable KELSEY Liang, BRANDO Unavailable Unavailable MARYAN GARCIA [place], REX HENDRICKS Unavailable Unavailable NERY SANTORO MD [...] migrainosus, not intractable (346.10, G43.009) Status: Active PCOS (polycystic ovarian syndrome) (256.4, [...] Intramuscular Suspension Prefilled Syringe #1 Lot #: [id number] on: 20-Dec-2019 Family History Name Dates Details [...] (finding) Vital Signs Date Test Result Details 57-Nys-031602:00 Physical Findings 10 Status: Comments: PHQ-9 Adult Depression Screening 58-Wpw-360950:45 Systolic blood pressure 107 mm[Hg] Status: Comments: [...] 12-32 ALT 17 u/l (Normal) Range: 5-32 61-Xtq-771375:29 [[facility]] CBC (INCLUDES DIFF/PLT) WHITE BLOOD CELL COUNT [...] 7.5-12.5 ABSOLUTE NEUTROPHILS 4385 {cells/uL} (Normal) Range: 3124-5743 ABSOLUTE LYMPHOCYTES 1951 {cells/uL} (Normal) Range: 850-3900 ABSOLUTE MONOCYTES 909 {cells/uL} (Normal) Range: 200-950 ABSOLUTE EOSINOPHILS 616 {cells/uL} (Above high threshold) Range: 15-500 ABSOLUTE BASOPHILS 40 {cells/uL} (Normal) Range: 0-200 NEUTROPHILS 55.5 % (Normal) LYMPHOCYTES 24.7 % (Normal) MONOCYTES 11.5 % (Normal) EOSINOPHILS 7.8 % (Normal) BASOPHILS 0.5 % (Normal) :29 [[facility]] T3, TOTAL T3, TOTAL 127 ng/dl (Normal) Range: 86-192 : [[facility]] T4, FREE T4, FREE 1.1 ng/dl (Normal) Range: 0.8-1.4 : [[facility]] TSH, 3RD GENERATION TSH 1.02 {MIU/L} (Normal) Comments: Reference Range 1-19 Years 0.50-4.30 Ranges First trimester 0.26-2.66 Second trimester 0.55-2.73 Third trimester 0.43-2.91 :29 [[facility]] HEMOGLOBIN A1c Comments: REPORT COMMENT:FASTING:NO HEMOGLOBIN A1c [...] diagnosis of diabetes in children. According to [place] Diabetes Association (ADA)guidelines, hemoglobin A1c <7.0% represents optimalcontrol in non- diabetic patients. Differentmetrics may apply to specific patient populations. Standards of Medical Care in Diabetes(ADA). Plan of Care Name Dates Details Planned Observations Planned Goals not documented Planned Encounters Appointment; BRYCE JAIN RD On: 27-Jan-2020 15:00 Interventions Provided Medication Changes* metFORMIN HCl ER (OSM) 500 MG Oral Tablet Extended Release 24 Hour - Renew Instructions Name Dates Details Instructions not documented [...] Problem not documented On: 15-Jan-2020 8:45 Appointment; NERY SANTORO M.D. Encounter Diagnosis: Problem not documented On: 17-Jan-2020 16:00
--- OUTSIDE RECORDS SUMMARY | 2020-02-04 05:52 | XMS REPORT | Summary of Care ---
Author Author Trell Larry Unknown Address Unknown Phone Unavailable Care Team Providers Care Custom Car Builder Name Role Phone MAUDE Liang, NERY Unavailable Unavailable KELSEY GARCIA [place], BRANDO DICKENS [...] Intramuscular Suspension Prefilled Syringe #1 Lot #: [id number] on: 20-Dec-2019 Family History Name Dates Details [...] Appointment; BRYCE JAIN RD On: 27-Jan-2020 15:00 Appointment; NERY SANTORO M.D. On: 20-Jul-2020 15:30 [...]
--- OUTSIDE RECORDS SUMMARY | 2020-02-04 05:52 | XMS REPORT | Summary of Care ---
Author Author NERY SANTORO M.D. Organization Unknown Address Unknown Phone Unavailable Care Team Providers Care Tobacco Primer Machine Operator Name Role Phone NERY SANTORO M.D. Unavailable Unavailable KELSEY GARCIA [place], BRANDO DICKENS Unavailable Unavailable ROWAN CRAFT [place], CHUCK Unavailable Unavailable KELSEY Liang, BRANDO Unavailable Unavailable MARYAN GARCIA [place], REX HENDRICKS Unavailable Unavailable NERY SANTORO MD [...] Intramuscular Suspension Prefilled Syringe #1 Lot #: [id number] on: 20-Dec-2019 Family History Name Dates Details [...] (finding) Vital Signs Date Test Result Details 59-Ioj-305063:00 Physical Findings 10 Status: Comments: PHQ-9 Adult Depression Screening 00-Zxw-144938:45 Systolic blood pressure 107 mm[Hg] Status: Comments: [...] 12-32 ALT 17 u/l (Normal) Range: 5-32 44-Oli-491767:29 [[facility]] CBC (INCLUDES DIFF/PLT) WHITE BLOOD CELL [...] 7.5-12.5 ABSOLUTE NEUTROPHILS 4385 {cells/uL} (Normal) Range: 9911-3861 ABSOLUTE LYMPHOCYTES 1951 {cells/uL} (Normal) Range: 850-3900 ABSOLUTE MONOCYTES 909 {cells/uL} (Normal) Range: 200-950 ABSOLUTE EOSINOPHILS 616 {cells/uL} (Above high threshold) Range: 15-500 ABSOLUTE BASOPHILS 40 {cells/uL} (Normal) Range: 0-200 NEUTROPHILS 55.5 % (Normal) LYMPHOCYTES 24.7 % (Normal) MONOCYTES 11.5 % (Normal) EOSINOPHILS 7.8 % (Normal) BASOPHILS 0.5 % (Normal) :29 [[facility]] T3, TOTAL T3, TOTAL 127 ng/dl (Normal) Range: 86-192 : [[facility]] T4, FREE T4, FREE 1.1 ng/dl (Normal) Range: 0.8-1.4 : [[facility]] TSH, 3RD GENERATION TSH 1.02 {MIU/L} (Normal) Comments: Reference Range 1-19 Years 0.50-4.30 Ranges First trimester 0.26-2.66 Second trimester 0.55-2.73 Third trimester 0.43-2.91 :29 [[facility]] HEMOGLOBIN A1c Comments: REPORT COMMENT:FASTING:NO HEMOGLOBIN [...] diagnosis of diabetes in children. According to [place] Diabetes Association (ADA)guidelines, hemoglobin A1c <7.0% represents optimalcontrol in non- diabetic patients. Differentmetrics may apply to specific patient populations. Standards of Medical Care in Diabetes(ADA). Plan of Care Name Dates Details Planned Observations Planned Goals not documented Planned Encounters Appointment; BRYCE JAIN RD On: 27-Jan-2020 15:00 Interventions Provided Labs/Procedures/Imaging* Tobacco Use Screening; Done: 15 Jan 2020 Plan* Avoid skipping meals. Get regular sleep. * Avoid foods that may trigger migraines (chocolate, red wine, cheese). * Keep a headache diary to better identify triggers (weather, sleep deprivation caffeine, hormones). * Refilled her Metformin ER 500 mg 2 po qd. * Recommended reducing portion sizes, increasing water intake. * Recommended increasing frequency of exercise, and gradually increasing intensity. * Discussed benefits of weight reduction. * Call back if symptoms worsen or fail to improve. * Recommended social distancing to decrease risk of exposure to coronavirus. Encouraged avoiding large groups of people. Recommended frequent hand-washing and avoidance of touching the face. * Schedule a follow up visit in 6 months. Instructions Name Dates Details Instructions not documented [...]
[2020-02-04 08:30] VITALS: BP 108/70
--- NOTE | 2020-02-04 09:20 | Operative Report ---
DATE OF PROCEDURE: 02/04/2020 SURGEON: Bharath Chaudhari MD REFERRING PHYSICIAN: Dr. Colilns. INDICATIONS FOR EGD: Upper abdominal pain, nausea, and vomiting. MEDICATIONS: The patient was done under MAC, please see anesthesiologist's note. PROCEDURE IN DETAIL: With the patient in left lateral decubitus position, a flexible fiberoptic Olympus gastroscope was introduced into the esophagus under direct visualization without any difficulty. There was some patchy erythema noted in distal esophagus. The scope was then advanced with ease into the stomach, advanced, traversing a small sliding hiatal hernia. Mucosa overlying the antrum and the body revealed some patchy erythema and [id number] edema, and biopsies were obtained and sent to stain for H. pylori. The pylorus was of normal contour and shape, it was intubated with ease and the scope was advanced all the way to the second portion of the duodenum. The scope was then withdrawn slowly and mucosa overlying the proximal second portion as well as the duodenal bulb grossly appeared to be within normal limits. Biopsies were obtained. The scope was then withdrawn back into the stomach and retroflexed mucosa overlying the fundus and cardia appeared to be within normal limits. The scope was then straightened out. The scope was subsequently withdrawn. The patient tolerated the procedure well. IMPRESSION: 1. Distal esophagitis. 2. Small sliding hiatal hernia. 3. Gastritis, biopsied. Biopsies sent to stain for H. pylori. 4. Rule out sprue. PLAN: Follow up histology. Initiate Protonix 40 mg one p.o. q.a.m. a.c. Bharath Chaudhari MD [facility] [place]/[facility] /[id number] cc: Dr. Collins
== END | disposition home or self-care (01) ==
LOC: ENDO 05:47
PROVIDERS: ATTEND Internal Medicine Gastroenterology
DX: K29.50 Unspecified chronic gastritis without bleeding (principal); K20.9 Esophagitis, unspecified; K44.9 Diaphragmatic hernia without obstruction or gangrene; K59.09 Other constipation; F17.200 Nicotine dependence, unspecified, uncomplicated; Z79.84 Long term (current) use of oral hypoglycemic drugs; Z68.33 Body mass index [BMI] 33.0-33.9, adult
CPT/HCPCS: 43239; 81025; C9113; J2250; J2704

== ENCOUNTER → 2020-02-07 | Outpatient (CLI) | payer BC ==
[~2020-02-07] MED LIST changes: -MIDAZOLAM HCL 2 MG/2 ML VIAL ONE; -PANTOPRAZOLE 40 MG 10ML VIAL ONE; -PROPOFOL IV EMULSION 10 MG/ML 50 ML VIAL ONE; -SODIUM CHLORIDE 0.9% INJ 10 ML VIAL ONE
--- NOTE | 2020-02-07 10:30 | Diagnostic Imaging Report ---
EXAM: US ABDOMEN COMPLETE DATE: 02/07/2020 9:00 AM INDICATION: Abdominal pain COMPARISON: None TECHNIQUE: Transverse and longitudinal pitts scale and color doppler sonographic images of the upper abdomen were obtained. FINDINGS: LIVER 14.7 cm in the right midclavicular line. Normal echogenicity of the liver with normal contour, no masses. SPLEEN 9.1 cm in maximum diameter. Normal echogenicity, no masses. GALLBLADDER No gallbladder wall thickening, distension, stone, or pericholecystic fluid. Negative reported sonographic Burger's sign. The gallbladder wall measures 1mm BILE DUCTS No intra nor extra-hepatic biliary dilation. Common bile duct measures 3mm PANCREAS: Visualized portions are normal. RIGHT KIDNEY: 10.1 cm Echogenicity: Normal Collecting System: No hydronephrosis Stones: None Cyst/Mass: None LEFT KIDNEY: 9.6 cm Echogenicity: Normal Collecting System: No hydronephrosis Stones: None Cyst/Mass: None VESSELS: Aorta: Visualized portions are within normal size limits Inferior Vena Cava: Visualized portions are normal Main Portal Vein: 0.9 cm, normal size with hepatopetal flow. FREE FLUID: None IMPRESSION: Unremarkable abdominal ultrasound. Signed by: Monique Grider MD on 02/07/2020 10:26 AM
== END ==
LOC: US 08:52
PROVIDERS: ATTEND Internal Medicine Gastroenterology
DX: R10.10 Upper abdominal pain, unspecified (principal); R10.33 Periumbilical pain
CPT/HCPCS: 76700